=== PATIENT | male | born 1970 | race African-American/Black ===

== ENCOUNTER 2020-02-12 02:16 | Emergency (ER) | payer SELFPAY ==
[2020-02-12] MEDS ORDERED: cloNIDine 0.1 MG Tab PO ONE (02:29)
--- NOTE | 2020-02-12 02:30 | EDM.PDOC ---
ED HPI GENERAL MEDICAL PROBLEM - General Stated Complaint: INTOXICATION Time Seen by Provider: 02/12/20 02:22 - History of Present Illness INITIAL COMMENTS - FREE TEXT/NARRATIVE: History of present illness: [] Patient presents with alcohol intoxication. He presents via EMS he is slurring his words and rambling and not quite clear what exactly he called [id number] he denies any homicidal or suicidal ideation he appears to be alert and oriented person place and time he is concerned about his blood pressure which is high he denies any headache chest pain trouble breathing abdominal or back pain. Review of systems: As per history of present illness and below otherwise all systems reviewed and negative. Past medical history: As per history of present illness and as reviewed below otherwise noncontributory. Surgical history: As per history of present illness and as reviewed below otherwise noncontributory. Social history: No reported history of drug or alcohol abuse. Family history: As per history of present illness and as reviewed below otherwise noncontributory. Physical exam: HEENT: Atraumatic, normocephalic, pupils reactive, negative for conjunctival pallor or scleral icterus, mucous membranes moist, throat clear, neck supple, nontender, trachea midline. Lungs: Clear to auscultation, breath sounds equal bilaterally, chest nontender. Heart: S1S2, regular, negative for clicks, rubs, or JVD. Abdomen: Soft, nondistended, nontender. Negative for masses or hepatosplenomegaly. Negative for costovertebral tenderness. Pelvis: Stable nontender. Genitourinary: Deferred. Rectal: Deferred. Extremities: Atraumatic, negative for cords or calf pain. Neurovascular unremarkable. Neuro: Awake, alert, oriented. Cranial nerves II through XII unremarkable. Cerebellum unremarkable. Motor and sensory unremarkable throughout. Exam nonfocal. Slurring his words but alert and interacting Diagnostics: [] Therapeutics: [] Impression: Alcohol intoxication, hypertension [] Plan: Patient will get some clonidine in the ED he will be discharged home on a calcium channel venita follow-up with primary care he will be discharged when he is sober enough to walk on his own and has a sober ride. [] Definitive disposition and diagnosis as appropriate pending reevaluation and review of above. - Related Data Allergies Allergy/AdvReac Type Severity Reaction Status Date / Time No Known Allergies Allergy Verified 02/12/20 02:31 Home Meds: Home Meds dilTIAZem HCL [Diltiazem 24Hr ER] 240 mg PO DAILY #30 cap.sa.24h 02/12/20 [Rx] ED ROS GENERAL - Review of Systems Review Of Systems: See Below ED EXAM, GENERAL - Physical Exam Exam: See Below Course - Vital Signs Text/Narrative:: Was reassessed at 3:15 AM his blood pressure is improved he will be discharged home with a sober ride Last Recorded V/S: Last Vital Signs Temp 36.4 C 02/12/20 02:28 Pulse 84 02/12/20 02:28 Resp 16 02/12/20 02:28 BP 170/117 H 02/12/20 02:35 Pulse Ox 98 02/12/20 02:28 - Orders/Labs/Meds Meds: Medications Discontinued Medications Generic Name Dose Route Start Last Admin Trade Name Freq PRN Reason Stop Dose Admin Clonidine HCl 0.2 mg 02/12/20 02:29 02/12/20 02:35 Catapres PO 02/12/20 02:30 0.2 mg ONETIME ONE Administration Departure - Departure Time of Disposition: 03:15 Disposition: Home, Self-Care 01 Condition: Good Clinical Impression: Alcohol abuse, Essential hypertension - Discharge Information *PRESCRIPTION DRUG MONITORING PROGRAM REVIEWED*: Not Applicable *COPY OF PRESCRIPTION DRUG MONITORING REPORT IN PATIENT ANDREY: Not Applicable Instructions: Alcohol Use Disorder, Hypertension, Adult, [id number] Additional Instructions: The following information is given to patients seen in the emergency department who are being discharged to home. This information is to outline your options for follow-up care. We provide all patients seen in our emergency department with a follow-up referral. The need for follow-up, as well as the timing and circumstances, are variable depending upon the specifics of your emergency department visit. If you don't have a primary care physician on staff, we will provide you with a referral. We always advise you to contact your personal physician following an emergency department visit to inform them of the circumstance of the visit and for follow-up with them and/or the need for any referrals to a consulting specialist. The emergency department will also refer you to a specialist when appropriate. This referral assures that you have the opportunity for follow-up care with a specialist. All of these measure are taken in an effort to provide you with optimal care, which includes your follow-up. Under all circumstances we always encourage you to contact your private physician who remains a resource for coordinating your care. When calling for follow-up care, please make the office aware that this follow-up is from your recent emergency room visit. If for any reason you are refused follow-up, please contact the [facility] at and asked to speak to the emergency department charge nurse. [facility] [address] [place] [id number] [id number] Sepsis Event Note - Focused Exam Vital Signs: Vital Signs Temp Pulse Resp BP BP Pulse Ox 02/12/20 02:35 170/117 H 02/12/20 02:28 36.4 C 84 16 170/117 H 98 Date Exam was Performed: 02/12/20 Time Exam was Performed: 03:15
== END 2020-02-12 03:30 | disposition home or self-care (01) ==
LOC: MW.ED 02:16
DX: F10.129 Alcohol abuse with intoxication, unspecified (principal); I10 Essential (primary) hypertension; Z79.899 Other long term (current) drug therapy
CPT/HCPCS: 99284; A9270; 99282